=== PATIENT | male | born 1985 | race Caucasian/White ===

== ENCOUNTER 2018-09-08 19:06 | Emergency (ER) | payer MEDICAID ==
[2018-09-08 19:24] VITALS: BMI 26.6
--- NOTE | 2018-09-08 19:52 | C.PDOC ---
History Of Present Illness 32 y/o male comes in to ED complaining of an itchy rash x4 days. Patient noticed bumps on his left chest that spread underneath his armpit and his left upper back. He describes the pain as a burning sensation and rated it 6/10. Denies taking any pain medications. He does admit to having chicken pox as a child. Denies any fever, chills, dizziness, weakness, nausea, vomiting, abdominal pain, chest pain, or SOB. Time Seen by Provider: 09/08/18 19:37 Chief Complaint (Nursing): Abnormal Skin Integrity History Per: Patient History/Exam Limitations: no limitations Onset/Duration Of Symptoms: Days Current Symptoms Are (Timing): Still Present Past Medical History Reviewed: Historical Data, Nursing Documentation, Vital Signs - Medical History PMH: No Chronic Diseases Family History: States: No Known Family Hx - Social History Hx Alcohol Use: Yes Hx Substance Use: No - Immunization History Hx Tetanus Toxoid Vaccination: No Hx Influenza Vaccination: No Hx Pneumococcal Vaccination: No Review Of Systems Constitutional: Negative for: Fever, Chills Cardiovascular: Negative for: Chest Pain Respiratory: Negative for: Shortness of Breath Gastrointestinal: Negative for: Nausea, Vomiting, Abdominal Pain Skin: Positive for: Rash (itchy rash on left side of chest, armpit, and left upper back) Neurological: Negative for: Weakness, Headache, Dizziness Physical Exam - Physical Exam Appears: Non-toxic, No Acute Distress Skin: Warm, Dry, Rash (erythematous maculopapular rash on left chest and axilla area, non-oozing; vesicles noted) Head: Atraumatic, Normacephalic Eye(s): bilateral: Normal Inspection, PERRL Oral Mucosa: Moist Tongue: Normal Appearing Lips: Normal Appearing Throat: No Erythema Neck: Normal ROM, Supple Cardiovascular: Rhythm Regular, No Murmur Respiratory: Normal Breath Sounds, No Rales, No Rhonchi, No Wheezing Back: Other (maculopapular rash left side of posterior thorax) Extremity: No Swelling Extremity: Bilateral: Atraumatic, Normal Color And Temperature, Normal ROM Neurological/Psych: Oriented x3, Normal Speech, Normal Motor, Normal Sensation Medical Decision Making Medical Decision Making: Plan: --Valtrex PO given now and advised to Continue Valtrex three times a day for 10 days Follow up with PMD in 1-2 days Read the [facility] handout instruction Return to ED if symptoms worsen Patient verbalizes understanding and is in agreement with plan. Patient is stable for discharge. Disposition Counseled Patient/Family Regarding: Diagnosis, Need For Followup, Rx Given - Disposition Referrals: Celso Caballero MD [Medical Doctor] - Disposition: HOME/ ROUTINE Disposition Time: 20:30 Condition: STABLE Additional Instructions: Continue Valtrex three times a day for 10 days Follow up with PMD in 1-2 days Read the Shingles handout instruction Return to ED if symptoms worsen Prescriptions: Valacyclovir HCl [Valtrex] 1,000 mg PO TID #29 tablet Instructions: Shingles (DC) Forms: [employer] (Frisian) - Clinical Impression Clinical Impression: Rash in adult, Shingles rash - PA / CODIFIER / Resident Statement MD/DO has reviewed & agrees with the documentation as recorded. - Scribe Statement The provider has reviewed the documentation as recorded by the Scribe Tracy De La Torre All medical record entries made by the Scribe were at my direction and personally dictated by me. I have reviewed the chart and agree that the record accurately reflects my personal performance of the history, physical exam, medical decision making, and the department course for this patient. I have also personally directed, reviewed, and agree with the discharge instructions and disposition.
== END 2018-09-08 20:36 | disposition home or self-care (01) ==
LOC: C.ER 19:06
DX: B02.9 Zoster without complications (principal)